=== PATIENT | male | born 1950 | race Caucasian/White ===

== ENCOUNTER 2020-08-11 22:50 | Emergency (ER) | payer OTHER ==
[2020-08-11 23:16] LABS: BASOPHIL 0.7 % (0-2); EOSINOPHIL 2.4 % (0-7); HCT 32.5 % (42.0-52.0); HGB 10.5 g/dl (13.2-18.0); LYMPHOCYTE 30.4 % (15-48); MCH 32.6 pg (25.0-31.0); MCHC 32.3 g/dL (32.0-36.0); MCV 100.9 fL (78.0-100.0); MONOCYTE 6.8 % (0-12); MPV 10.3 fL (6.0-9.5); NEUTROPHIL 59.4 % (41-80); NRBC 0; PLT 148 K/uL (150-400); RBC 3.22 M/uL (4.70-6.00); WBC 11.5 K/uL (4.0-10.5)
[2020-08-11 23:30] LABS: PROTHROMBIN TIME 12.5 SECONDS (11.4-13.6)
[2020-08-11 23:31] LABS: PTT 28.9 SECONDS (22.2-34.7)
[2020-08-11 23:40] LABS: ALBUMIN 3.2 g/dL (3.4-5.0); BILIRUBIN - TOTAL 0.5 mg/dL (0.2-1.0); BUN/CREAT RATIO (CALC) 15.4 RATIO; CREATININE 5.08 mg/dL (0.67-1.17); GLOBULIN (CALCULATION) 3.4 g/dL; TOTAL PROTEIN 6.6 g/dL (6.4-8.2)
== END 2020-08-12 02:45 | disposition other institution (70) ==
LOC: FER 22:50
PROVIDERS: Emergency Medicine
DX: I21.4 Non-ST elevation (NSTEMI) myocardial infarction (principal); I12.9 Hypertensive chronic kidney disease with stage 1 through stage 4 chronic kidney disease, or unspecified chronic kidney disease; E11.22 Type 2 diabetes mellitus with diabetic chronic kidney disease; N18.4 Chronic kidney disease, stage 4 (severe); Z86.73 Personal history of transient ischemic attack (TIA), and cerebral infarction without residual deficits; Z79.02 Long term (current) use of antithrombotics/antiplatelets; Z79.899 Other long term (current) drug therapy; Z79.4 Long term (current) use of insulin; Z20.822 Contact with and (suspected) exposure to COVID-19
CPT/HCPCS: 36415; 71045; 71250; 80053; 84484; 85025; 85379; 85610; 85730; 93005; J1650; U0002